=== PATIENT | male | born 1960 | race Caucasian/White ===

== ENCOUNTER 2019-04-06 16:27 | Emergency (ER) | payer SELFPAY ==
[~2019-04-06] VITALS: Ht 180.3 cm; Wt 69.0 kg
--- NOTE | 2019-04-06 16:46 | PHYS DOC ---
Adult General Chief Complaint Chief Complaint: COLD EXPOSURE HPI HPI Patient is a 58 year old male patient who presents to the ED today complaining of Pop bites to the right foot. Patient reports being outside for long hours today working. He also reports consuming some alcohol. Denies needing help for alcoholism. Review of Systems Review of Systems Constitutional: Denies fever or chills [] Eyes: Denies change in visual acuity, redness, or eye pain [] HENT: Denies nasal congestion or sore throat [] Respiratory: Denies cough or shortness of breath [] Cardiovascular: No additional information not addressed in HPI [] GI: Denies abdominal pain, nausea, vomiting, bloody stools or diarrhea [] : Denies dysuria or hematuria [] Musculoskeletal: Denies back pain or joint pain [] Integument: Pupils frostbite to the right foot Neurologic: Denies headache, focal weakness or sensory changes [] Pysch: Reports alcoholism All other systems were reviewed and found to be within normal limits, except as documented in this note. Physical Exam Physical Exam Constitutional: Old appearing patient that stated age, unkept, no acute dis tress, non-toxic appearance. [] HENT: Normocephalic, atraumatic, bilateral external ears normal, oropharynx moist, no oral exudates, nose normal. [] Eyes: PERRLA, EOMI, conjunctiva normal, no discharge. [] Neck: Normal range of motion, no tenderness, supple, no stridor. [] Cardiovascular:Heart rate regular rhythm, no murmur [] Lungs & Thorax: Bilateral breath sounds clear to auscultation [] Abdomen: Bowel sounds normal, soft, no tenderness, no masses, no pulsatile masses. [] Skin: right foot is cold and very dirty. Pop bites noted on the top of the right fourth toes and lateral foot. Neurovascular exam is intact to the right foot. Left foot with all toe amputations. Back: No tenderness, no CVA tenderness. [] Extremities: No tenderness, no cyanosis, no clubbing, ROM intact, no edema. [] Neurologic: Alert and oriented X 3, normal motor function, normal sensory function, no focal deficits noted. [] Psychologic: Flat affect, he has drunk EKG EKG [] Radiology/Procedures Radiology/Procedures [] Course & Med Decision Making Course & Med Decision Making Pertinent Labs and Imaging studies reviewed. (See chart for details) This is a 58-year-old male patient presented to the ED today with forced bites to the right foot. Patient has been out for long hours apparently working though he is also drunk. He is homeless and lives in a homeless long term. His feet were warmed in the ED and d/c back to a homeless long term. Tetanus is up-to-date. Encouraged patient to consider getting help for alcoholism Dragon Disclaimer Dragon Disclaimer This electronic medical record was generated, in whole or in part, using a voice recognition dictation system. Departure Departure Impression: Primary Impression: Frostbite of foot, right Additional Impressions: Homeless ETOHism Disposition: HOME, SELF-CARE Condition: STABLE Referrals: NO PCP (PCP) LAZARUS GARAY MD follow up with your doctor in 1-2 weeks Patient Instructions: Alcohol Problems, Frostbite, [id number] Additional Instructions: You were evaluated in the emergency room for frostbite's. We recommend you avoid being out in the cold for long hours. Try and ensure you are dressup warm if you have to be outside. Consider getting help for alcohol use. Apply Neosporin to the frostbite's Problem Qualifiers Primary Impression: Frostbite of foot, right Encounter type: initial encounter Qualified Codes: T33.821A - Superficial frostbite of right foot, initial encounter; X31.XXXA - Exposure to excessive natural cold, initial encounter MYRIAM DHALIWAL APRN Apr 06, 2019 16:46
[2019-04-06 17:01] VITALS: BP 149/93
== END 2019-04-06 17:05 | disposition home or self-care (01) ==
LOC: ER 16:27
DX: T33.821A Superficial frostbite of right foot, initial encounter (principal); F10.10 Alcohol abuse, uncomplicated; Z59.0 Homelessness; X31.XXXA Exposure to excessive natural cold, initial encounter; Y93.89 Activity, other specified; Y92.89 Other specified places as the place of occurrence of the external cause; Y99.8 Other external cause status
CPT/HCPCS: 99282

== ENCOUNTER 2019-05-15 18:50 | Emergency (ER) | payer SELFPAY ==
[~2019-05-15] VITALS: Ht 180.3 cm; Wt 68.6 kg
[2019-05-15] MEDS ORDERED: ALBUTEROL SULFATE 2.5 MG/3 ML NEBU. NEB ONE (19:15)
[2019-05-15] MEDS ORDERED: IPRATRPIUM/ALBUTEROL 0.5/2.5MG 3 ML NEBU. NEB ONE (19:15)
[2019-05-15] MEDS ORDERED: methylPREDNISolone SOD SUCC PF 125 MG/2 ML VIAL. IV ONE (20:00)
[2019-05-15 20:23] VITALS: BP 108/85
[2019-05-15] MEDS ORDERED: AZIT250T6 PO (20:30)
[2019-05-15] MEDS ORDERED: PRED50TA PO (20:30)
[2019-05-15] MEDS ORDERED: BENZ100C PO (20:30)
--- NOTE | 2019-05-15 20:30 | PHYS DOC ---
Past Medical History Past Medical History: No Pertinent History, CHF, Hypertension (TSERING LAWS APRN) Past Surgical History: No Surgical History (TSERING LAWS APRN) Smoking Status: Current Every Day Smoker Additional Information: 2/ Alcohol Use: None (TSERING LAWS APRN) Attending Signature I have participated in the care of this patient and I have reviewed and agree with all pertinent clinical information above including history, exam, and recommendations. (ALMA OLIVAREZ MD) Adult General Chief Complaint Chief Complaint: ASTHMA HPI HPI Patient is a 58 year old male who presents to the emergency department via POV with complaints of shortness of breath and asthma problems for the last 2 days. Patient states that he has had a productive cough with white sputum but denies having any fever, chest pain, palpitations, diaphoresis, nausea, vomiting, diarrhea, abdominal pain, ear pain, sore throat, body aches, or fatigue. Patient reports that he smokes 2 packs of cigarettes a day. He states he does have an albuterol inhaler at home but has not tried taking it for his shortness of breath. He currently denies any pain. (TSERING LAWS APRN) Review of Systems Review of Systems Complete ROS is negative unless otherwise noted in HPI. (TSERING LAWS APRN) Current Medications Current Medications Current Medications Medications (Trade) Dose Ordered Sig/August Start Time Stop Time Status Last Admin Dose Admin Albuterol Sulfate (Ventolin Neb Soln) 2.5 mg 1X ONCE 05/15/19 19:15 05/15/19 19:16 DC 05/15/19 20:20 2.5 MG Albuterol/ Ipratropium (Duoneb) 3 ml 1X ONCE 05/15/19 19:15 05/15/19 19:16 DC 05/15/19 20:19 3 ML Methylprednisolone Sodium Succinate (SOLU-Medrol 125MG VIAL) 125 mg 1X ONCE 05/15/19 20:00 05/15/19 20:01 DC 05/15/19 20:36 125 MG (ALMA OLIVAREZ MD) Allergies Allergies Allergies Coded Allergies Type Severity Reaction Last Updated Verified No Known Drug Allergies 04/06/19 No (ALMA OLIVAREZ MD) Physical Exam Physical Exam See Above Constitutional: Well developed, well nourished, no acute distress, non-toxic appearance. [] HENT: Normocephalic, atraumatic, bilateral external ears normal, oropharynx moist, no oral exudates, nose normal. [] Eyes: PERRLA, EOMI, conjunctiva normal, no discharge. [] Neck: Normal range of motion, no stridor. [] Cardiovascular:Heart rate regular rhythm, no murmur [] Lungs & Thorax: Bilateral breath sounds expiratory wheezes throughout all hickey, slightly diminished in bilateral bases, no retractions, regular rate, speaking full sentences Skin: Warm, dry, no erythema, no rash. [] Back: No tenderness Extremities: No cyanosis, ROM intact Neurologic: Alert and oriented X 3, no focal deficits noted. [] Psychologic: Affect normal, judgement normal, mood normal. [] (TSERING LAWS APRN) Current Patient Data Vital Signs Vital Signs Date Time Temp Pulse Resp B/P (MAP) Pulse Ox O2 Delivery O2 Flow Rate FiO2 05/15/19 20:24 95 Room Air 05/15/19 20:23 76 17 108/85 (93) 05/15/19 18:50 98.1 98.1 (ALMA OLIVAREZ MD) EKG EKG [] (TSERING LAWS APRN) Radiology/Procedures Radiology/Procedures PROCEDURE: CHEST AP ONLY Exam: Chest one view INDICATION: Short of air TECHNIQUE: Frontal view of the chest Comparisons: None FINDINGS: The cardiomediastinal silhouette and pulmonary vessels are within normal limits. The lung and pleural spaces are clear. IMPRESSION: No acute cardiopulmonary process.[] (TSERING LAWS APRN) Course & Med Decision Making Course & Med Decision Making Pertinent Labs and Imaging studies reviewed. (See chart for details) Patient presented to the emergency department with complaints of an asthma exacerbation. His chest x-ray was unremarkable, the patient was given a DuoNeb and albuterol breathing treatment in addition 225 mg of IV Solu-Medrol. He reported feeling better after these medications and his lungs were clear in all hickey. No respiratory distress. Vital signs are stable in the emergency department. Prescription written for Zithromax, Tessalon Perles, and prednisone to begin taking tomorrow. Patient encouraged to take his albuterol inhaler as needed for shortness of breath or wheezing. He was encouraged to return to the emergency room if symptoms worsen. [] (TSERING LAWS APRN) Roger Disclaimer Dragon Disclaimer This electronic medical record was generated, in whole or in part, using a voice recognition dictation system. (TSERING LAWS APRN) Departure Departure Impression: Primary Impression: Asthma exacerbation Disposition: 01 HOME, SELF-CARE Condition: STABLE Referrals: NO PCP (PCP) Patient Instructions: Asthma, Acute Bronchospasm Additional Instructions: Fill prescription(s) and use as directed. Recommend use of a Cool mist humidifier in room at bedtime. Use your inhaler as prescribed for wheezing or shortness of breath. Alternate Tylenol or ibuprofen as needed for pain/fever. Increase clear fluids. Avoid airway triggers such as smoke, fragrance, dust, and pollen. Follow-up with your primary care doctor in 1-2 days, return to the ER if symptoms worsen. Scripts Benzonatate (TESSALON PERLE) 100 Mg Capsule 1 CAP PO TID PRN for COUGH for 7 Days, #21 CAP 0 Refills Prov: TSERING LAWS APRN 05/15/19 Prednisone (PREDNISONE) 50 Mg Tablet 1 TAB PO DAILY for 5 Days, #5 TAB 0 Refills Prov: TSERING LAWS APRN 05/15/19 Azithromycin (AZITHROMYCIN TABLET) 250 Mg Tablet 1 PKG PO UD for 5 Days, #6 TAB 0 Refills 2 the first day followed by 1 for days 2-5 Prov: TSERING LAWS APRN 05/15/19 Problem Qualifiers Primary Impression: Asthma exacerbation Asthma severity: mild Asthma persistence: intermittent Qualified Codes: J45.21 - Mild intermittent asthma with (acute) exacerbation TSERING LAWS APRN May 15, 2019 20:30 ALMA OLIVAREZ MD May 16, 2019 02:22
--- NOTE | 2019-05-15 20:32 | RAD ---
Exam: Chest one view INDICATION: Short of air TECHNIQUE: Frontal view of the chest Comparisons: None FINDINGS: The cardiomediastinal silhouette and pulmonary vessels are within normal limits. The lung and pleural spaces are clear. IMPRESSION: No acute cardiopulmonary process. Electronically signed by: Myles Keith MD (05/15/2019 8:28 PM) [id number]
== END 2019-05-15 20:40 | disposition home or self-care (01) ==
LOC: ER 18:50
DX: J45.21 Mild intermittent asthma with (acute) exacerbation (principal); R06.02 Shortness of breath; R05 Cough; F17.210 Nicotine dependence, cigarettes, uncomplicated
CPT/HCPCS: 71045; 94640; 96374; 99285; J2930; J7613

== ENCOUNTER 2019-05-24 19:33 | Emergency (ER) | payer SELFPAY ==
[~2019-05-24] VITALS: Ht 180.3 cm; Wt 65.0 kg
[~2019-05-24 19:33] MED LIST: AZIT250T6 PO; BENZ100C PO; PRED50TA PO
[2019-05-24] MEDS ORDERED: IPRATRPIUM/ALBUTEROL 0.5/2.5MG 3 ML NEBU. NEB ONE (20:45)
[2019-05-24] MEDS ORDERED: ALBU2.5V8 IH (21:23)
--- NOTE | 2019-05-24 21:26 | PHYS DOC ---
Past Medical History Past Medical History: Asthma, CHF, Hypertension Past Surgical History: No Surgical History Smoking Status: Current Every Day Smoker Alcohol Use: None Adult General Chief Complaint Chief Complaint: DYSPNEA/RESPIRATOY DISTRESS [facility] HPI Patient is a 58 year old male who presents with shortness of breath. Patient states his been out of his inhaler and has been wheezing. Denies any other symptoms. Complete ROS were reviewed and found to be within normal limits, except as documented in the HPI Current Medications Current Medications Current Medications Medications (Trade) Dose Ordered Sig/August Start Time Stop Time Status Last Admin Dose Admin Albuterol/ Ipratropium (Duoneb) 3 ml 1X ONCE 05/24/19 20:45 05/24/19 20:47 DC Allergies Allergies Allergies Coded Allergies Type Severity Reaction Last Updated Verified No Known Drug Allergies 04/06/19 No Physical Exam Physical Exam Constitutional: Well developed, well nourished, no acute distress, non-toxic appearance. [] HENT: Normocephalic, atraumatic, bilateral external ears normal, oropharynx moist, no oral exudates, nose normal. [] Eyes: PERRLA, EOMI, conjunctiva normal, no discharge. [] Neck: Normal range of motion, no tenderness, supple, no stridor. [] Cardiovascular:Heart rate regular rhythm, no murmur [] Lungs & Thorax: Bilateral breath sounds have diffuse wheezing. Neurologic: Alert and oriented X 3, normal motor function, normal sensory function, no focal deficits noted. [] Psychologic: Affect normal, judgement normal, mood normal. [] Current Patient Data Vital Signs Vital Signs Date Time Temp Pulse Resp B/P (MAP) Pulse Ox O2 Delivery O2 Flow Rate FiO2 05/24/19 19:56 97.8 96 20 135/80 (98) 91 Room Air 97.8 EKG EKG [] Radiology/Procedures Radiology/Procedures [] Course & Med Decision Making Course & Med Decision Making Pertinent Labs and Imaging studies reviewed. (See chart for details) We will give patient breathing treatment and then discharge home. Dragon Disclaimer Dragon Disclaimer This electronic medical record was generated, in whole or in part, using a voice recognition dictation system. Departure Departure Impression: Primary Impression: Asthma exacerbation Disposition: HOME, SELF-CARE Condition: STABLE Referrals: NO PCP (PCP) Patient Instructions: Asthma, Adult Additional Instructions: Thank you for visiting [facility]. We appreciate you trusting us with your care. If any additional problems come up don't hesitate to return to visit us. Please follow up with your primary care provider so they can plan additional care if needed and know about the problem that you had. If symptoms worsen come back to the Emergency Department. Any concerning symptoms that start such as chest pain, shortness of air, weakness or numbness on one side of the body, running high fevers or any other concerning symptoms return to the ER. Scripts Albuterol Sulfate (PROAIR HFA INHALER) 8.5 Gm Hfa.aer.ad 2 PUFF IH PRN Q4-6HRS PRN for wheezing for 21 Days, #1 INHALER 0 Refills Prov: ONESIMO SHELTON APRN 05/24/19 ONESIMO SHELTON APRN May 24, 2019 21:26
[2019-05-24 22:25] VITALS: BP 117/68
== END 2019-05-24 22:27 | disposition home or self-care (01) ==
LOC: ER 19:33
DX: J45.901 Unspecified asthma with (acute) exacerbation (principal); I11.0 Hypertensive heart disease with heart failure; I50.9 Heart failure, unspecified; F17.200 Nicotine dependence, unspecified, uncomplicated
CPT/HCPCS: 94640; 99285

== ENCOUNTER 2020-03-13 18:27 | Emergency (ER) | payer SELFPAY ==
[~2020-03-13] VITALS: Ht 180.3 cm; Wt 65.0 kg
[~2020-03-13 18:27] MED LIST changes: +ALBU2.5V8 IH
[2020-03-13] MEDS ORDERED: ACETAMINOPHEN 500 MG TABLET PO ONE (20:45)
--- NOTE | 2020-03-13 21:46 | RAD ---
Three-view right knee dated 03/13/2020. No comparison is available Clinical data indication: Medial right knee pain. FINDINGS: 3 views right knee show normal bony alignment. No displaced fracture. No acute osseous or articular a bnormality. No apparent joint effusion or loose body. IMPRESSION: No acute findings. Electronically signed by: Delbert Maddox MD (03/13/2020 9:44 PM) [id number]
--- NOTE | 2020-03-13 22:25 | PHYS DOC ---
Past Medical History Past Medical History: Asthma, CHF, Hypertension Past Surgical History: Other Additional Past Surgical Histo: LEFT FOOT, HERNIA, Smoking Status: Current Every Day Smoker Alcohol Use: None General Adult EDM: Chief Complaint: KNEE INJURY HPI: HPI: Patient is a 59 year old [f__sex] who presents with [] Review of Systems: Review of Systems: Constitutional: Denies fever or chills. [] Eyes: Denies change in visual acuity. [] HENT: Denies nasal congestion or sore throat. [] Respiratory: Denies cough or shortness of breath. [] Cardiovascular: Denies chest pain or edema. [] GI: Denies abdominal pain, nausea, vomiting, bloody stools or diarrhea. [] : Denies dysuria. [] Musculoskeletal: Denies back pain or joint pain. [] Integument: Denies rash. [] Neurologic: Denies headache, focal weakness or sensory changes. [] Endocrine: Denies polyuria or polydipsia. [] Lymphatic: Denies swollen glands. [] Psychiatric: Denies depression or anxiety. [] Heart Score: Risk Factors: Risk Factors: DM, Current or recent (<one month) smoker, HTN, HLP, family history of CAD, obesity. Risk Scores: Score 0 - 3: 2.5% MACE over next 6 weeks - Discharge Home Score 4 - 6: 20.3% MACE over next 6 weeks - Admit for Clinical Observation Score 7 - 10: 72.7% MACE over next 6 weeks - Early Invasive Strategies Current Medications: Current Medications Medications (Trade) Dose Ordered Sig/August Start Time Stop Time Status Last Admin Dose Admin Acetaminophen (Tylenol) 1,000 mg 1X ONCE 03/13/20 20:45 03/13/20 20:46 DC 03/13/20 21:52 1,000 MG Allergies: Allergies: Allergies Coded Allergies Type Severity Reaction Last Updated Verified No Known Drug Allergies 04/06/19 No Physical Exam: PE: Constitutional: Well developed, well nourished, no acute distress, non-toxic appearance. HENT: Normocephalic, atraumatic, Eyes: EOMI, conjunctiva normal, no discharge. Neck: Normal range of motion, supple, Cardiovascular: S1/2 present, regular rhythm Lungs & Thorax: Speaking in full sentences, bilateral equal chest rise, no tachypnea or increased work of breathing Abdomen: soft, no tenderness, Skin: Warm, dry, no erythema, no rash. [] Back: No tenderness, no CVA tenderness. [] Extremities: No tenderness, no cyanosis, no edema Neurologic: Alert and oriented X 3, normal motor function, normal sensory function, no focal deficits noted. [] Psychologic: Affect normal, judgement normal, mood normal. [] Current Patient Data: Vital Signs: Vital Signs Date Time Temp Pulse Resp B/P (MAP) Pulse Ox O2 Delivery O2 Flow Rate FiO2 03/13/20 20:14 98.1 93 16 137/85 (102) 95 Room Air 98.1 EKG: EKG: [] Radiology/Procedures: Radiology/Procedures: IMAGING REPORT Signed PATIENT: RAS WILILS ACCOUNT: [id number] : 1960 LOCATION: ER AGE: 59 SEX: M EXAM STATUS: REG ER ORD. PHYSICIAN: CHARLIE GOODEN DO REASON: right medial knee pain PROCEDURE: KNEE RIGHT 3V Three-view right knee dated 03/13/2020. No comparison is available Clinical data indication: Medial right knee pain. FINDINGS: 3 views right knee show normal bony alignment. No displaced fracture. No acute osseous or articular abnormality. No apparent joint effusion or loose body. IMPRESSION: No acute findings. Electronically signed by: Delbert Maddox MD (03/13/2020 9:44 PM) [id number] DICTATED and SIGNED BY: DELBERT MADDOX MD DATE: 03/13/20 [id number] 0 Course & Med Decision Making: Course & Med Decision Making Pertinent Labs and Imaging studies reviewed. (See chart for details) Will discharge home with strict ED return precautions were given for repeat injury, severe pain or neurologic deficits. Encouraged urgent outpatient follow- up with PMD and Ortho if pain should persist, may benefit from further imaging. Life-threatening processes were considered but are low suspicion at this time, given history, physical exam and ED workup. Pt was educated on all prescription medications and adverse effects. All patient's questions were answered and pt was stable at time of discharge. Life/limb-threatening differential includes but is not limited to, avascular necrosis, septic arthritis, malignancy, fracture/ligamentous injury/overuse, decompression sickness, seronegative spondyloarthropathies, trauma including dislocation/fracture, Lyme disease, lupus, arthritis differentials, gout/pseudogout or decompression sickness. I spoken with the patient and her caregivers. I explained the patient's condition, diagnoses and treatment plan based on the information available to me at this time. I have answered the patient and her caregiver's questions and addressed any concerns. The patient and her caregivers have a good un derstanding of patient's diagnosis, condition and treatment plan as can be expected at this point. Vital signs have been stable. Patient's condition is stable and appropriate for discharge from the emergency department. Patient will pursue further outpatient evaluation with primary care physician or other designated or consulting physician as outlined in the discharge instructi ons. The patient and/or caregivers are agreeable to this plan of care and follow-up instructions have been explained in detail. The patient and/or caregivers have received these instructions in written form and have expressed an understanding of the discharge instructions. The patient and/or caregivers are aware that any significant change of condition or worsening of symptoms s hould prompt immediate return to this or the closest emergency department or [facility] Disclaimer: Roger Disclaimer: This electronic medical record was generated, in whole or in part, using a voice recognition dictation system. Departure Departure Impression: Primary Impression: Right knee pain Disposition: 01 DC HOME SELF CARE/HOMELESS Condition: STABLE Referrals: NO PCP (PCP) FOLLOW UP WITH FAMILY MEDICINE: Family Medicine Address: [address] [place] [address] Patient Instructions: Knee Pain, RICE - Routine Care for Injuries Additional Instructions: FOLLOW UP WITH ORTHOPEDICS: Orthopaedic Sports Medicine Orthopaedic Surgery [facility] Address: [address] [place] [address] EMERGENCY DEPARTMENT GENERAL DISCHARGE INSTRUCTIONS Thank you for coming to [facility] Emergency Department (ED) today and trusting us with you care. We trust that you had a positive experience in our Emergency Department. If you wish to speak to the department management, you may call the Director at [phone]. YOUR FOLLOW UP INSTRUCTIONS ARE FOLLOWS: 1. Do you have a private Doctor? If you do not have a private doctor, please ask for a resource list of physicians or clinics that may be able to assist you with follow up care. 2. The Emergency Physicain has interpreted your x-rays. The X-Ray specialist will also review them. If there is a change in the findings, you will be notified in 48 hours when at all possible. 3. A lab test or culture has been done, your results will be reviewed and you will be notified if you need a change in treatment. ADDITIONAL INSTRUCTIONS AND INFORMATION: 1. Your care today has been supervised by a physician who is specially trained in emergency care. Many problems require more than one evaluation for a complete diagnosis and treatment. We recommend that you schedule your follow up appointment as recommended to ensure complete treatment of you illness or injury. If you are unable to obtain follow up care and continue to have a problem, or if your condition worsens, we recommend that you return to the ED. 2. We are not able to safely determine your condition over the phone nor are we able to give sound medical advice over the phone. For these safety reasons, if you call for medical advice we will ask you to come to the ED for further evaluation. 3. If you have any questions regarding these discharge instructions please call the ED at [phone]. SAFETY INFORMATION: In the interest of safety, wellness, and injury prevention; we encourage you to wear your sealbelt, if you smoke; quite smoking, and we encourage family to use a protective helmet for bicycling and other sporting events that present an increased risk for head injury. IF YOUR SYMPTOMS WORSEN OR NEW SYMPTOMS DEVELOP, OR YOU HAVE CONCERNS ABOUT YOUR CONDITION; OR IF YOUR CONDITION WORSENS WHILE YOU ARE WAITING FOR YOUR FOLLOW UP APPOINTMENT; EITHER CONTACT YOUR PRIMARY CARE DOCTOR, THE PHYSICIAN WHOSE NAME AND NUMBER YOU WERE GIVEN, OR RETURN TO THE ED IMMEDIATELY. CHARLIE WHITLOCK DO Mar 13, 2020 22:25
[2020-03-13 22:45] VITALS: BP 132/87
== END 2020-03-13 22:59 | disposition home or self-care (01) ==
LOC: ER 18:27
DX: M25.561 Pain in right knee (principal); I11.0 Hypertensive heart disease with heart failure; I50.9 Heart failure, unspecified; J45.909 Unspecified asthma, uncomplicated; F17.200 Nicotine dependence, unspecified, uncomplicated
CPT/HCPCS: 73562; 99285

== ENCOUNTER 2020-05-11 19:19 | Emergency (ER) | payer SELFPAY ==
[~2020-05-11] VITALS: Ht 180.3 cm; Wt 73.0 kg
--- NOTE | 2020-05-11 19:26 | PHYS DOC ---
Past Medical History Past Medical History: Asthma, CHF, Hypertension Past Surgical History: Other Additional Past Surgical Histo: LEFT FOOT, HERNIA, Smoking Status: Current Every Day Smoker Alcohol Use: None General Adult HPI: HPI: 51-year-old male past medical history significant for CHF, asthma and hypertension, presents the ED brought in by EMS with complaints of " asthma," states it flared up 2 days ago and reports needing to come to the ed every week for treatments, has no refills for steroids or inhalers. Patient denies any history of DVT or PEs. No history of Covid. Reports he has a home health physical parents is otherwise. Denies any cocaine abuse, chest pain, hemoptysis or syncope. Review of Systems: Review of Systems: Constitutional: Denies fever or chills. [] Eyes: Denies change in visual acuity. [] HENT: Denies nasal congestion or sore throat. [] Respiratory: Denies cough or hemoptysis or increased work of breathing Cardiovascular: Denies chest pain or edema. [] GI: Denies abdominal pain, nausea, vomiting, bloody stools or diarrhea. [] : Denies dysuria. [] Musculoskeletal: Denies back pain or joint pain. [] Integument: Denies rash. [] Neurologic: Denies headache, focal weakness or sensory changes. [] Endocrine: Denies polyuria or polydipsia. [] Lymphatic: Denies swollen glands. [] Psychiatric: Denies depression or anxiety. [] Heart Score: C/O Chest Pain: No Risk Factors: Risk Factors: DM, Current or recent (<one month) smoker, HTN, HLP, family history of CAD, obesity. Risk Scores: Score 0 - 3: 2.5% MACE over next 6 weeks - Discharge Home Score 4 - 6: 20.3% MACE over next 6 weeks - Admit for Clinical Observation Score 7 - 10: 72.7% MACE over next 6 weeks - Early Invasive Strategies Allergies: Allergies: Allergies Coded Allergies Type Severity Reaction Last Updated Verified No Known Drug Allergies 04/06/19 No Physical Exam: PE: Constitutional: Well developed, well nourished, no acute distress, unkept/disheveled appearance, looks older than 58, lying flat/comfortable on ED stretcher HENT: Normocephalic, atraumatic, Eyes: EOMI, conjunctiva normal, no discharge. Neck: Normal range of motion, supple, Cardiovascular: S1/2 present, regular rhythm Lungs & Thorax: Speaking in full sentences, bilateral equal chest rise, no tachypnea or increased work of breathing, breath sounds in all 4 lung hickey, mild expiratory wheezing, Skin: Warm, dry, no erythema, no rash. [] Extremities: No tenderness, no cyanosis, no lower extremity edema Neurologic: Alert and oriented X 3, normal motor function, normal sensory function, no focal deficits noted. [] Psychologic: Affect normal, judgement normal, mood normal. [] EKG: EKG: Sinus rhythm at 70 bpm, no axis deviation, normal intervals, T wave inversion aVL, no ST elevations or ST depressions Radiology/Procedures: Radiology/Procedures: IMAGING REPORT Signed PATIENT: RAS WILLIS ACCOUNT: [id number] : 1960 LOCATION: ER AGE: 59 SEX: M EXAM STATUS: REG ER ORD. PHYSICIAN: CHARLIE GOODEN DO REASON: soa PROCEDURE: PORTABLE CHEST 1V Exam: Chest one view INDICATION: Short of air TECHNIQUE: Frontal view of the chest Comparisons: 05/15/2019 FINDINGS: The cardiomediastinal silhouette and pulmonary vessels are within normal limits. The lung and pleural spaces are clear. IMPRESSION: No acute cardiopulmonary process. Electronically signed by: Myles Salcido MD (05/11/2020 7:59 PM) [facility] DICTATED and SIGNED BY: MYLES SALCIDO MD DATE: 05/11/20 [id number] 0 Course & Med Decision Making: Course & Med Decision Making Pertinent Labs and Imaging studies reviewed. (See chart for details) Concern for mild asthma exacerbation in the setting of medication noncompliance. Patient comfortable, speaking in full sentences and requiring no supplemental oxygen. Is no physical signs of DVT. Has no increased work of breathing. Lung sounds improved after breathing treatments and prednisone. Will DC home with steroids for 4 days, albuterol and Flovent inhaler. Will discharge home with strict ED return precautions were given for increased work of breathing, hemoptysis, chest or upper back pain, nausea, vomiting, syncope or neurologic deficits. Encouraged urgent outpatient follow-up with PMD and pulmonology. Life-threatening processes were considered but are low suspicion at this time, given history, physical exam and ED workup. Pt was educated on all prescription medications and adverse effects. All patient's questions were answered and pt was stable at time of discharge. Life/limb-threatening differential includes but is not limited to, ACS, dysrhythmia, pneumothorax or hemothorax, pulmonary embolus, pneumonia, bronchoconstriction, pulmonary edema, angioedema, epiglottitis, tracheitis, César's angina, RPA/EVP OPERATIONS, anaphylaxis, angioedema, cardiac tamponade or murmurs, pericarditis, myocarditis, poisoning or toxicity, sepsis or autoimmune/karolina rologic disease. I spoken with the patient and her caregivers. I explained the patient's condition, diagnoses and treatment plan based on the information available to me at this time. I have answered the patient and her caregiver's questions and addressed any concerns. The patient and her caregivers have a good understanding of patient's diagnosis, condition and treatment plan as can be expected at this point. Vital signs have been stable. Patient's condition is stable and appropriate for discharge from the emergency department. Patient will pursue further outpatient evaluation with primary care physician or other designated or consulting physician as outlined in the discharge instructions. The patient and/or caregivers are agreeable to this plan of care and follow-up instructions have been explained in detail. The patient and/or caregivers have received these instructions in written form and have expressed an understanding of the discharge instructions. The patient and/or caregivers are aware that any significant change of condition or worsening of symptoms should prompt immediate return to this or the closest emergency department or call to 911. Roger Disclaimer: Roger Disclaimer: This electronic medical record was generated, in whole or in part, using a voice recognition dictation system. Departure Departure Impression: Primary Impression: Asthma exacerbation Disposition: 01 DC HOME SELF CARE/HOMELESS Condition: STABLE Referrals: NO PCP (PCP) FOLLOW UP WITH FAMILY MEDICINE: Family Medicine Address: [address] [place] [address] Patient Instructions: Asthma Prevention-Brief, Asthma, Adult Additional Instructions: FOLLOW UP WITH: [facility] Address: [address] [place] [address] EMERGENCY DEPARTMENT GENERAL DISCHARGE INSTRUCTIONS Thank you for coming to [facility] Emergency Department (ED) today and trusting us with you care. We trust that you had a positive experience in our Emergency Department. If you wish to speak to the department management, you may call the Director at [phone]. YOUR FOLLOW UP INSTRUCTIONS ARE FOLLOWS: 1. Do you have a private Doctor? If you do not have a private doctor, please ask for a resource list of physicians or clinics that may be able to assist you with follow up care. 2. The Emergency Physicain has interpreted your x-rays. The X-Ray specialist will also review them. If there is a change in the findings, you will be notified in 48 hours when at all possible. 3. A lab test or culture has been done, your results will be reviewed and you will be notified if you need a change in treatment. ADDITIONAL INSTRUCTIONS AND INFORMATION: 1. Your care today has been supervised by a physician who is specially trained in emergency care. Many problems require more than one evaluation for a complete diagnosis and treatment. We recommend that you schedule your follow up appointment as recommended to ensure complete treatment of you illness or injury. If you are unable to obtain follow up care and continue to have a problem, or if your condition worsens, we recommend that you return to the ED. 2. We are not able to safely determine your condition over the phone nor are we able to give sound medical advice over the phone. For these safety reasons, if you call for medical advice we will ask you to come to the ED for further evaluation. 3. If you have any questions regarding these discharge instructions please call the ED at [phone]. SAFETY INFORMATION: In the interest of safety, wellness, and injury prevention; we encourage you to wear your sealbelt, if you smoke; quite smoking, and we encourage family to use a protective helmet for bicycling and other sporting events that present an increased risk for head injury. IF YOUR SYMPTOMS WORSEN OR NEW SYMPTOMS DEVELOP, OR YOU HAVE CONCERNS ABOUT YOUR CONDITION; OR IF YOUR CONDITION WORSENS WHILE YOU ARE WAITING FOR YOUR FOLLOW UP APPOINTMENT; EITHER CONTACT YOUR PRIMARY CARE DOCTOR, THE PHYSICIAN WHOSE NAME AND NUMBER YOU WERE GIVEN, OR RETURN TO THE ED IMMEDIATELY. Scripts Fluticasone Propionate (FLOVENT 44MCG HFA) 10.6 Gm Aer.w.adap 2 PUFF IH BID for 30 Days, #1 INHALER 0 Refills Prov: CHARLIE GOODEN DO 05/11/20 Albuterol Sulfate (VENTOLIN HFA INHALER) 18 Gm Hfa.aer.ad 2 PUFF INH QID for FOR ASTHMA, #1 INHALER 0 Refills Prov: CHARLIE GOODEN DO 05/11/20 Prednisone (PREDNISONE) 20 Mg Tablet 2 TAB PO DAILY for 4 Days, #8 TAB Prov: CHARLIE GOODEN DO 05/11/20 CHARLIE GOODEN DO May 11, 2020 19:26
--- NOTE | 2020-05-11 19:52 | EKG ---
[facility] [address] [place] [address] Test Date: 2020-05-11 Test Time: 19:32:08 Pat Name: RAS WILLIS Department: Room: Gender: M Director Of Safety And Security: : 1960 Requested By: CHARLIE GOODEN Order Number: [id number] Reading MD: Measurements Intervals [place] Rate: 79 P: 64 [place]: 166 QRS: 80 QRSD: 82 T: 66 QT: 356 QTc: 414 Interpretive Statements SINUS RHYTHM INCOMPLETE RIGHT BUNDLE BRANCH BLOCK OTHERWISE NORMAL ECG RI6.02 No previous ECG available for comparison
[2020-05-11] MEDS ORDERED: IPRATRPIUM/ALBUTEROL 0.5/2.5MG 3 ML NEBU. NEB ONE (20:00)
[2020-05-11] MEDS ORDERED: DEXAMETHASONE 4 MG TABLET PO SCH (20:00)
--- NOTE | 2020-05-11 20:02 | RAD ---
Exam: Chest one view INDICATION: Short of air TECHNIQUE: Frontal view of the chest Comparisons: 05/15/2019 FINDINGS: The cardiomediastinal silhouette and pulmonary vessels are within normal limits. The lung and pleural spaces are clear. IMPRESSION: No acute cardiopulmonary process. Electronically signed by: Myles Keith MD (05/11/2020 7:59 PM) [facility]
[2020-05-11 20:54] VITALS: BP 122/75
[2020-05-11] MEDS ORDERED: PRED20TA PO (21:59)
[2020-05-11] MEDS ORDERED: VENTOLIN HFA18 GM INH (22:25)
[2020-05-11] MEDS ORDERED: FLUT10.6 IH (22:25)
== END 2020-05-11 22:54 | disposition home or self-care (01) ==
LOC: ER 19:19
DX: J45.901 Unspecified asthma with (acute) exacerbation (principal); I11.0 Hypertensive heart disease with heart failure; I50.9 Heart failure, unspecified; F17.200 Nicotine dependence, unspecified, uncomplicated
CPT/HCPCS: 71045; 93005; 94640; 99285-25

== ENCOUNTER 2020-09-27 12:00 | Emergency (ER) | payer SELFPAY ==
[~2020-09-27] VITALS: Ht 180.3 cm; Wt 56.8 kg
[~2020-09-27 12:00] MED LIST changes: +ACET325T9 PO; +DOXY100T PO; +FLUT10.6 IH; +PRED20TA PO; +VENTOLIN HFA18 GM INH
[2020-09-27] MEDS ORDERED: methylPREDNISolone SOD SUCC PF 125 MG/2 ML VIAL. IV SCH (12:30)
[2020-09-27] MEDS ORDERED: ALBUTEROL SULFATE 2.5 MG/3 ML NEBU. NEB ONE (12:30)
--- NOTE | 2020-09-27 12:52 | RAD ---
EXAM: Chest, single view. HISTORY: Shortness of breath. COMPARISON: 08/24/2020 FINDINGS: A frontal view of the chest is obtained. There is lingular atelectasis or interstitial infi ltrate. There is no pleural effusion or pneumothorax. The heart is normal in size. There is suspected emphysema. IMPRESSION: Lingular atelectasis or interstitial infiltrate. Electronically signed by: Kimmy Marshall MD (09/27/2020 12:50 PM) [id number]
--- NOTE | 2020-09-27 12:57 | PHYS DOC ---
Past Medical History Past Medical History: Asthma, CHF, COPD, Hypertension Past Surgical History: No Surgical History Additional Past Surgical Histo: TOE AMPUTATION Smoking Status: Current Every Day Smoker Alcohol Use: None General Adult EDM: Chief Complaint: MEDICATION REFILL HPI: HPI: Patient is a 59 year old male who presents with approximately 2 days of increased shortness of breath, cough, chest tightness. He states he does have an inhaler and is just not working. He states he has been using inhaler he does not have a nebulizer though. He states that he has had his Covid shots and is fully vaccinated. He denies any chest pain, syncope, dizziness, headache, fever, nausea, vomiting, diarrhea, abdominal pain, back pain, body aches. He does have a history of COPD, smoking, alcoholism, homelessness, frostbite, toe amputation, CHF, hypertension. Review of Systems: Review of Systems: Constitutional: Denies fever or chills. [] Eyes: Denies change in visual acuity. [] HENT: Denies nasal congestion or sore throat. [] Respiratory: + cough or +shortness of breath. [] Cardiovascular: + chest tightness or denies edema. [] GI: Denies abdominal pain, nausea, vomiting, bloody stools or diarrhea. [] : Denies dysuria. [] Musculoskeletal: Denies back pain or joint pain. [] Integument: Denies rash. [] Neurologic: Denies headache, focal weakness or sensory changes. [] Endocrine: Denies polyuria or polydipsia. [] Lymphatic: Denies swollen glands. [] Psychiatric: Denies depression or anxiety. [] Heart Score: C/O Chest Pain: No HEART Score for Chest Pain: HEART Score for Chest Pain Response (Comments) Value History Slighlty/Non-Suspicious 0 ECG Nonspecific Repolarizatio 1 Age >45 - < 65 1 Risk Factors 1 or 2 Risk Factors 1 Troponin < Normal Limit 0 Total 3 Risk Factors: Risk Factors: DM, Current or recent (<one month) smoker, HTN, HLP, family history of CAD, obesity. Risk Scores: Score 0 - 3: 2.5% MACE over next 6 weeks - Discharge Home Score 4 - 6: 20.3% MACE over next 6 weeks - Admit for Clinical Observation Score 7 - 10: 72.7% MACE over next 6 weeks - Early Invasive Strategies Current Medications: Current Medications Medications (Trade) Dose Ordered Sig/August Start Time Stop Time Status Last Admin Dose Admin Albuterol Sulfate (Ventolin Neb Soln) 2.5 mg 1X ONCE 09/27/20 12:30 09/27/20 12:31 DC Methylprednisolone Sodium Succinate (SOLU-Medrol 125MG VIAL) 80 mg 1X 09/27/20 12:30 Allergies: Allergies: Allergies Coded Allergies Type Severity Reaction Last Updated Verified No Known Drug Allergies 04/06/19 No Physical Exam: PE: Constitutional: Well developed, well nourished, no acute distress, non-toxic appearance. [] HENT: Normocephalic, atraumatic, bilateral external ears normal, oropharynx moist, no oral exudates, nose normal. [] Eyes: PERRLA, EOMI, conjunctiva normal, no discharge. [] Neck: Normal range of motion, no tenderness, supple, no stridor. [] Cardiovascular:Heart rate regular rhythm, no murmur [] Lungs & Thorax: Bilateral breath sounds inspiratory expiratory coarse throughout to auscultation [] Abdomen: Bowel sounds normal, soft, no tenderness, no masses, no pulsatile masses. [] Skin: Warm, dry, no erythema, no rash. [] Back: No tenderness, no CVA tenderness. [] Extremities: No tenderness, no cyanosis, no clubbing, ROM intact, no edema. [] Neurologic: Alert and oriented X 3, normal motor function, normal sensory function, no focal deficits noted. [] Psychologic: Affect normal, judgement normal, mood normal. [] Current Patient Data: Vital Signs: Vital Signs Date Time Temp Pulse Resp B/P (MAP) Pulse Ox O2 Delivery O2 Flow Rate FiO2 09/27/20 12:04 98.1 89 22 102/63 94 Room Air 98.1 EKG: EK and read by Dr. La as a sinus rhythm with a incomplete right bundle branch block with peaked T waves and no STEMI. Radiology/Procedures: Radiology/Procedures: [] Impression: [facility] [address] [place], [place] [id number] IMAGING REPORT Signed PATIENT: RAS WILLIS ACCOUNT: [id number] : 1960 LOCATION: ER AGE: 59 SEX: M EXAM STATUS: REG ER ORD. PHYSICIAN: TIFFANY GARCIA APRN REASON: SOA INCREASEING, INHALER NOT WORKING PROCEDURE: PORTABLE CHEST 1V EXAM: Chest, single view. HISTORY: Shortness of breath. COMPARISON: 08/24/2020 FINDINGS: A frontal view of the chest is obtained. There is lingular atelectasis or interstitial infiltrate. There is no pleural effusion or pneumothorax. The heart is normal in size. There is suspected emphysema. IMPRESSION: Lingular atelectasis or interstitial infiltrate. Electronically signed by: Kimmy Santillan MD (09/27/2020 12:50 PM) [id number] DICTATED and SIGNED BY: KIMMY SANTILLAN MD DATE: 09/27/20 [id number] 0 Course & Med Decision Making: Course & Med Decision Making Pertinent Labs and Imaging studies reviewed. (See chart for details) COVID-19 CRITERIA: The patient was evaluated during the global COVID-19 pandemic, and that diagnosis was suspected/considered upon their initial presentation. Their evaluation, treatment and testing was consistent with current guidelines for patients who present with complaints or symptoms that may be related to COVID-19. See HPI. Alert and oriented x4. Ambulatory with a steady gait. Speaks in full clear sentences. Was brought in by EMS today. He is 92 to 94% on room air. No accessory muscle use. No respiratory distress. However patient does have inspiratory expiratory coarse sounds throughout all lung lobes. No extremity edema. Skin is pink warm and dry. Cap refill less than 2 seconds. Patient is deciding to 85%. He is 90% on room air. Patient is refusing antibiotic, steroids, Covid test, admission, ABG. I asked the patient what I can do more for him if he would not let me help him. He states that he understands he has pneumonia and he understands that he could go home and because of his low oxygen saturation but he states he is fine with that and he wants to leave. He states " if I , I ". He denies suicidal ideation. He states he wants to go home. Patient states he understands that there is a real risk of or disability when leaving here today. [] Dragon Disclaimer: Dragon Disclaimer: This electronic medical record was generated, in whole or in part, using a voice recognition dictation system. COVID-19 Patient Risks: Age 65 or older: No Sign of co-morbidity: Yes Exp to person + for COVID: No Exp to PUI: No Travel from affected area: No Lower respiratory symptoms: Yes Fever: No Other: No PPE Use: Full PPE with N95 mask or PAPR: Yes Departure Departure Impression: Primary Impression: COPD exacerbation Additional Impressions: Hypoxia Pneumonia Qualified Codes: J18.9 - Pneumonia, unspecified organism Left against medical advice Person under investigation for COVID-19 Disposition: LEFT AGAINST MEDICAL ADVICE Condition: GOOD Referrals: NO PCP (PCP) Patient Instructions: Chronic Obstructive Pulmonary Disease Exacerbation, Discharge Against Medical Advice, Pneumonia, Adult Additional Instructions: Follow-up with primary care provider soon as possible. Take medication as prescribed and with food. If you begin having severe shortness of breath and chest pain you return emergency room. Scripts Albuterol Sulfate (PROAIR HFA INHALER) 8.5 Gm Hfa.aer.ad 1 PUFF INH PRN Q6HRS PRN for SHORTNESS OF BREATH, #1 EACH 0 Refills Prov: TIFFANY GARCIA APRN 09/27/20 Methylprednisolone (MEDROL) 4 Mg Tab.ds.pk 1 PKG PO UD, #1 PKG Prov: TIFFANY GARCIA APRN 09/27/20 Doxycycline Hyclate (DOXYCYCLINE HYCLATE) 100 Mg Capsule 1 CAP PO BID, #14 CAP Prov: TIFFANY GARCIA APRN 09/27/20 TIFFANY GARCIA APRN Sep 27, 2020 12:57
[2020-09-27] MEDS ORDERED: DOXYCYCLINE HYCLATE 100 MG in IV DEXTROSE 5% 100ML 100 ML IV ONE (13:00)
[2020-09-27 13:01] LABS: BASO # 0.1 x10^3/uL (0.0-0.2); BASO % 1 % (0-3); EOS # 0.4 x10^3/uL (0.0-0.7); EOS % 6 % (0-3); HEMATOCRIT 37.4 % (39.0-53.0); HEMOGLOBIN 12.5 g/dL (13.0-17.5); LYMPH # 2.5 x10^3/uL (1.0-4.8); LYMPH % 33 % (24-48); MEAN CORPUSCULAR HEMOGLOBIN 34 pg (25-35); MEAN CORPUSCULAR HGB CONC 34 g/dL (31-37); MEAN CORPUSCULAR VOLUME 100 fL (79-100); MONO # 0.8 x10^3/uL (0.0-1.1); MONO % 11 % (0-9); NEUT # 3.8 x10^3/uL (1.8-7.7); NEUT % 50 % (31-73); PLATELET COUNT 248 x10^3/uL (140-400); RED BLOOD COUNT 3.75 x10^6/uL (4.30-5.70); RED CELL DISTRIBUTION WIDTH 13.7 % (11.5-14.5); WHITE BLOOD COUNT 7.6 x10^3/uL (4.0-11.0)
[2020-09-27 13:16] LABS: CALCIUM 9.6 mg/dL (8.5-10.1); CREATININE 0.8 mg/dL (0.7-1.3); GFR 99.3; POTASSIUM 4.8 mmol/L (3.5-5.1)
[2020-09-27 13:21] LABS: ALBUMIN 3.3 g/dL (3.4-5.0); ALBUMIN/GLOBULIN RATIO 1.2 (1.0-1.7); TOTAL BILIRUBIN 0.1 mg/dL (0.2-1.0); TOTAL PROTEIN 6.1 g/dL (6.4-8.2)
[2020-09-27] MEDS ORDERED: ALBU2.5V8 INH (13:44)
[2020-09-27] MEDS ORDERED: METH4TAB2 PO (13:44)
[2020-09-27] MEDS ORDERED: DOXY100C3 PO (13:44)
[2020-09-27 13:57] VITALS: BP 114/73
--- NOTE | 2020-09-27 15:40 | EKG ---
[facility] [address] [place] [address] Test Date: 2020-09-27 Test Time: 12:04:06 Pat Name: RAS WILLIS Department: Room: Gender: M Rivet Flunky: : 1960 Requested By: TIFFANY GARCIA Order Number: [id number] Reading MD: Measurements Intervals [place] Rate: 89 P: 52 [place]: 156 QRS: 83 QRSD: 82 T: 69 QT: 326 QTc: 398 Interpretive Statements SINUS RHYTHM INCOMPLETE RIGHT BUNDLE BRANCH BLOCK NON SPECIFIC ST-T ABNORMALITY (ELEVATION) OTHERWISE NORMAL ECG RI6.02 No previous ECG available for comparison
== END 2020-09-27 13:57 | disposition left against medical advice (07) ==
LOC: ER 12:00
DX: J18.9 Pneumonia, unspecified organism (principal); J44.1 Chronic obstructive pulmonary disease with (acute) exacerbation; R09.02 Hypoxemia; I45.10 Unspecified right bundle-branch block; J44.9 Chronic obstructive pulmonary disease, unspecified; I11.0 Hypertensive heart disease with heart failure; I50.9 Heart failure, unspecified; F17.200 Nicotine dependence, unspecified, uncomplicated
CPT/HCPCS: 36415; 71045; 80053; 83605; 84484; 85025; 87040; 87205; 93005; 94640; 99285; J7613; 87077

== ENCOUNTER 2021-07-04 18:57 | Emergency (ER) | payer SELFPAY ==
[~2021-07-04] VITALS: Ht 177.8 cm; Wt 60.0 kg
[~2021-07-04 18:57] MED LIST changes: +ALBU2.5V8 INH; +DOXY100C3 PO; +METH4TAB2 PO
[2021-07-04] MEDS ORDERED: IV NORMAL SALINE 1000ML BAG 1,000 ML IV ONE (19:15)
[2021-07-04] MEDS ORDERED: IPRATRPIUM/ALBUTEROL 0.5/2.5MG 3 ML NEBU. NEB ONE (19:15)
--- NOTE | 2021-07-04 19:19 | ED.ADGEN ---
Past Medical History Past Medical History: Asthma, CHF, COPD, Hypertension Past Surgical History: No Surgical History Additional Past Surgical Histo: TOE AMPUTATION Smoking Status: Current Every Day Smoker Alcohol Use: None General Adult EDM: Chief Complaint: MULTIPLE COMPLAINTS HPI: HPI: Patient is a 60 year old male coming in from home via EMS for shortness of breath and wheezing. Patient has a history of asthma and COPD. On EMS arrival he was satting 92% on room air, was given a DuoNeb in route and improved to 97 to 98%. Patient states he does not have any medications at home. Denies other medical conditions. Patient is also concerned because he had a tick bite on his right lower leg about a week ago. Patient says he has a nonproductive cough he denies any fever chills, vomiting or diarrhea. Patient continues to smoke daily. Review of Systems: Review of Systems: All other systems within normal limits except for as noted in the HPI Current Medications: Current Medications Medications (Trade) Dose Ordered Sig/August Start Time Stop Time Status Last Admin Dose Admin Albuterol/ Ipratropium (Duoneb) 3 ml 1X ONCE 07/04/21 19:15 07/04/21 19:16 DC 07/04/21 19:43 3 ML Levofloxacin (Levaquin) 750 mg 1X ONCE 07/04/21 20:45 07/04/21 20:53 DC Prednisone (Prednisone) 60 mg 1X ONCE 07/04/21 20:45 07/04/21 20:53 DC Sodium Chloride 1,000 ml @ 1,000 mls/hr 1X ONCE 07/04/21 19:15 07/04/21 20:14 DC 07/04/21 19:41 1,000 MLS/HR Allergies: Allergies: Allergies Coded Allergies Type Severity Reaction Last Updated Verified No Known Drug Allergies 07/04/21 No Physical Exam: PE: Constitutional: Well developed, well nourished, no acute distress, non-toxic appearance. [] HENT: Normocephalic, atraumatic, bilateral external ears normal, nose normal. [] Eyes: PERRLA, conjunctiva normal, no discharge. [] Neck: No rigidity, supple, no stridor. [] Cardiovascular: Regular rate and rhythm, brisk cap refill [] Lungs & Thorax: Non labored symmetric respirations, no tachypnea or respiratory distress. Bilateral diminished breath [] Abdomen: Soft, nondistended. Skin: Warm, dry, no erythema, no rash. Small punctate wound on medial right lower extremity, no surrounding erythema or rash [] Back: Unremarkable Extremities: No deformities, range of motion grossly intact, no lower extremity edema. Tenderness over proximal right fibula. [] Neurologic: Alert and oriented X 3, no focal deficits noted. [] Psychologic: Affect normal, judgement normal, mood normal. [] Current Patient Data: Labs: Laboratory Tests Test 07/04/21 19:36 07/04/21 19:48 White Blood Count 5.7 x10^3/uL (4.0-11.0) Red Blood Count 4.01 x10^6/uL (4.30-5.70) L Hemoglobin 13.4 g/dL (13.0-17.5) Hematocrit 39.5 % (39.0-53.0) Mean Corpuscular Volume 99 fL (79-100) Mean Corpuscular Hemoglobin 34 pg (25-35) Mean Corpuscular Hemoglobin Concent 34 g/dL (31-37) Red Cell Distribution Width 13.6 % (11.5-14.5) Platelet Count 241 x10^3/uL (140-400) Neutrophils (%) (Auto) 38 % (31-73) Lymphocytes (%) (Auto) 41 % (24-48) Monocytes (%) (Auto) 13 % (0-9) H Eosinophils (%) (Auto) 7 % (0-3) H Basophils (%) (Auto) 1 % (0-3) Neutrophils # (Auto) 2.1 x10^3/uL (1.8-7.7) Lymphocytes # (Auto) 2.3 x10^3/uL (1.0-4.8) Monocytes # (Auto) 0.7 x10^3/uL (0.0-1.1) Eosinophils # (Auto) 0.4 x10^3/uL (0.0-0.7) Basophils # (Auto) 0.1 x10^3/uL (0.0-0.2) Sodium Level 137 mmol/L (136-145) Potassium Level 4.2 mmol/L (3.5-5.1) Chloride Level 99 mmol/L (98-107) Carbon Dioxide Level 28 mmol/L (21-32) Anion Gap 10 (6-14) Blood Urea Nitrogen 12 mg/dL (8-26) Creatinine 0.7 mg/dL (0.7-1.3) Estimated GFR (Cockcroft-Gault) 115.4 BUN/Creatinine Ratio 17 (6-20) Glucose Level 93 mg/dL (70-99) Calcium Level 9.4 mg/dL (8.5-10.1) Magnesium Level 1.9 mg/dL (1.8-2.4) Total Bilirubin 0.1 mg/dL (0.2-1.0) L Aspartate Amino Transferase (AST) 33 U/L (15-37) Alanine Aminotransferase (ALT) 35 U/L (16-63) Alkaline Phosphatase 83 U/L (46-116) Troponin I High Sensitivity 8 ng/L (4-75) Total Protein 6.6 g/dL (6.4-8.2) Albumin 3.5 g/dL (3.4-5.0) Albumin/Globulin Ratio 1.1 (1.0-1.7) POC Venous pH 7.31 (7.32-7.42) L POC Venous pCO2 59 mmHg (41-51) H POC Venous pO2 70 mmHg (20-40) H Venous Blood HCO3 29 mmol/L (24-28) H POC Venous O2 Saturation (Magdaleno) 92 % POC FiO2 21.0 Laboratory Tests 07/04/21 19:36 Laboratory Tests 07/04/21 19:36 Vital Signs: Vital Signs Date Time Temp Pulse Resp B/P (MAP) Pulse Ox O2 Delivery O2 Flow Rate FiO2 07/04/21 19:47 70 18 112/62 (79) 91 BREATHING TX 07/04/21 18:57 97.5 97.5 EKG: EKG: [] Heart Score: C/O Chest Pain: No Risk Factors: Risk Factors: DM, Current or recent (<one month) smoker, HTN, HLP, family history of CAD, obesity. Risk Scores: Score 0 - 3: 2.5% MACE over next 6 weeks - Discharge Home Score 4 - 6: 20.3% MACE over next 6 weeks - Admit for Clinical Observation Score 7 - 10: 72.7% MACE over next 6 weeks - Early Invasive Strategies Radiology/Procedures: Radiology/Procedures: [facility] [address] [place] [address] IMAGING REPORT Signed PATIENT: RAS WILLIS ACCOUNT: [id number] : 1960 LOCATION: ER AGE: 60 SEX: M EXAM STATUS: REG ER ORD. PHYSICIAN: CHINTAN SALAZAR MD REASON: tenderness on prox fib PROCEDURE: TIBIA FIBULA RIGHT EXAMINATION: XR RT TIBIA+FIBULA CLINICAL HISTORY: Pain proximal fibula. TECHNIQUE: XR RT TIBIA+FIBULA COMPARISON: None FINDINGS/ IMPRESSION: Deformity of the proximal fibula on AP view but poorly visualized on lateral view due to bony overlap, suspicious for a remote healed fracture, correlate clinically. Poorly visualized acute fracture considered less likely but not entirely excluded, especially if there is history of acute trauma. There is otherwise no evidence of acute or chronic fracture. Joints at the knee and ankle incompletely evaluated. No focal soft tissue swelling. Vascular calcifications. Electronically signed by: Faustino Eduardo DO (07/04/2021 8:29 PM) [facility] DICTATED and SIGNED BY: FAUSTINO EDUARDO DO DATE: 07/04/212025 [] [address] [address] IMAGING REPORT Signed PATIENT: RAS WILLIS ACCOUNT: [id number] : 1960 LOCATION: ER AGE: 60 SEX: M EXAM STATUS: REG ER ORD. PHYSICIAN: CHINTAN SALAZAR MD REASON: copd PROCEDURE: PORTABLE CHEST 1V EXAMINATION: XR CHEST 1V CLINICAL HISTORY: COPD. EXAM DATE/TIME: 07/04/2021 7:28 PM COMPARISON: 09/27/2020 FINDINGS: Lines, Tubes, and Devices: None. Cardiomediastinal Silhouette: Normal heart size. Aortic atherosclerotic calcification. Lungs and Pleura: Mild patchy opacities in the right mid to lower and left lower lung zones. Nonspecific interstitial prominence, similar to prior study and likely chronic. No evidence of pleural effusion or pneumothorax. Bones and Soft Tissues: Degenerative changes in the thoracic spine. IMPRESSION: Nonspecific mild patchy opacities in the right mid and bilateral lower lung zones. Electronically signed by: Faustino Eduardo DO (07/04/2021 8:25 PM) [facility] DICTATED and SIGNED BY: FAUSTINO EDUARDO DO DATE: 07/04/212023 Course & Med Decision Making: Course & Med Decision Making Pertinent Labs and Imaging studies reviewed. (See chart for details) [] Dragon Disclaimer: Dragon Disclaimer: This electronic medical record was generated, in whole or in part, using a voice recognition dictation system. Departure Departure Impression: Primary Impression: COPD exacerbation Additional Impression: Pneumonia Disposition: HOME / SELF CARE / HOMELESS Condition: STABLE Referrals: NO PCP (PCP) Patient Instructions: Smoking Cessation Scripts Prednisone (PREDNISONE) 50 Mg Tablet 1 TAB PO DAILY for steroid for 4 Days, #4 TAB Prov: CHINTAN SALAZAR MD 07/04/21 Albuterol Sulfate (PROAIR HFA INHALER) 8.5 Gm Hfa.aer.ad 2 PUFF IH PRN Q4-6HRS PRN for wheezing for 21 Days, #1 INHALER 1 Refill Prov: CHINTAN SALAZAR MD 07/04/21 Levofloxacin (LEVOFLOXACIN) 750 Mg Tablet 1 TAB PO DAILY for antibiotic, #5 TAB Prov: CHINTAN SALAZAR MD 07/04/21 Problem Qualifiers CHINTAN SALAZAR MD July 04, 2021 19:19
[2021-07-04 19:52] LABS: BASO # 0.1 x10^3/uL (0.0-0.2); BASO % 1 % (0-3); EOS # 0.4 x10^3/uL (0.0-0.7); EOS % 7 % (0-3); HEMATOCRIT 39.5 % (39.0-53.0); HEMOGLOBIN 13.4 g/dL (13.0-17.5); LYMPH # 2.3 x10^3/uL (1.0-4.8); LYMPH % 41 % (24-48); MEAN CORPUSCULAR HEMOGLOBIN 34 pg (25-35); MEAN CORPUSCULAR HGB CONC 34 g/dL (31-37); MEAN CORPUSCULAR VOLUME 99 fL (79-100); MONO # 0.7 x10^3/uL (0.0-1.1); MONO % 13 % (0-9); NEUT # 2.1 x10^3/uL (1.8-7.7); NEUT % 38 % (31-73); PLATELET COUNT 241 x10^3/uL (140-400); RED BLOOD COUNT 4.01 x10^6/uL (4.30-5.70); RED CELL DISTRIBUTION WIDTH 13.6 % (11.5-14.5); WHITE BLOOD COUNT 5.7 x10^3/uL (4.0-11.0)
[2021-07-04 19:55] LABS: ISTAT BE VENOUS 3 mmol/L (0-3); ISTAT HCO3 VEN 29 mmol/L (24-28); ISTAT PCO2 VEN 59 mmHg (41-51); ISTAT PH VEN 7.31 (7.32-7.42); ISTAT PO2 VEN 70 mmHg (20-40); ISTAT SAT O2 VEN 92 %; ISTAT TCO2 VEN 31 mmol/L (21-32)
[2021-07-04 20:04] LABS: CALCIUM 9.4 mg/dL (8.5-10.1); CREATININE 0.7 mg/dL (0.7-1.3); GFR 115.4; POTASSIUM 4.2 mmol/L (3.5-5.1)
[2021-07-04 20:17] LABS: ALBUMIN 3.5 g/dL (3.4-5.0); ALBUMIN/GLOBULIN RATIO 1.1 (1.0-1.7); MAGNESIUM 1.9 mg/dL (1.8-2.4); TOTAL BILIRUBIN 0.1 mg/dL (0.2-1.0); TOTAL PROTEIN 6.6 g/dL (6.4-8.2)
--- NOTE | 2021-07-04 20:28 | RAD ---
EXAMINATION: XR CHEST 1V CLINICAL HISTORY: COPD. EXAM DATE/TIME: 07/04/2021 7:28 PM COMPARISON: 09/27/2020 FINDINGS: Lines, Tubes, and Devices: None. Cardiomediastinal Silhouette: Normal heart size. Aortic atherosclerotic calcification. Lungs and Pleura: Mild patchy opacities in the right mid to lower and left lower lung zones. Nonspeci fic interstitial prominence, similar to prior study and likely chronic. No evidence of pleural effusi on or pneumothorax. Bones and Soft Tissues: Degenerative changes in the thoracic spine. IMPRESSION: Nonspecific mild patchy opacities in the right mid and bilateral lower lung zones. Electronically signed by: Faustino Upton DO (07/04/2021 8:25 PM) [facility]OL[facility]
--- NOTE | 2021-07-04 20:32 | RAD ---
EXAMINATION: XR RT TIBIA+FIBULA CLINICAL HISTORY: Pain proximal fibula. TECHNIQUE: XR RT TIBIA+FIBULA COMPARISON: None FINDINGS/ IMPRESSION: Deformity of the proximal fibula on AP view but poorly visualized on lateral view due to bony overlap , suspicious for a remote healed fracture, correlate clinically. Poorly visualized acute fracture con sidered less likely but not entirely excluded, especially if there is history of acute trauma. There is otherwise no evidence of acute or chronic fracture. Joints at the knee and ankle incompletel y evaluated. No focal soft tissue swelling. Vascular calcifications. Electronically signed by: Faustino Upton DO (07/04/2021 8:29 PM) [facility]
[2021-07-04] MEDS ORDERED: predniSONE 20 MG TABLET PO ONE (20:45)
[2021-07-04] MEDS ORDERED: LEVO750T5 PO (21:28)
[2021-07-04] MEDS ORDERED: ALBU2.5V8 IH (21:28)
[2021-07-04] MEDS ORDERED: PRED50TA PO (21:28)
[2021-07-04 21:47] VITALS: BP 97/56
--- NOTE | 2021-07-05 05:53 | EKG ---
[facility] [address] [place] [address] Test Date: 2021-07-04 Test Time: 19:21:02 Pat Name: RAS WILLIS Department: Room: Gender: M [employer]er: [id number] : 1960 Requested By: CHINTAN SALAZAR Order Number: [id number] Reading MD: Kieran Marmolejo Measurements Intervals [place] Rate: 75 P: 90 ME: 164 QRS: 84 QRSD: 84 T: 71 QT: 370 QTc: 416 Interpretive Statements SINUS RHYTHM Electronically Signed On 07-07-2021 10:12:46 CDT by Kieran Marmolejo
== END 2021-07-04 22:05 | disposition home or self-care (01) ==
LOC: ER 18:57
DX: S81.831A Puncture wound without foreign body, right lower leg, initial encounter (principal); J18.9 Pneumonia, unspecified organism; J44.1 Chronic obstructive pulmonary disease with (acute) exacerbation; I11.0 Hypertensive heart disease with heart failure; I50.9 Heart failure, unspecified; J45.909 Unspecified asthma, uncomplicated; F17.200 Nicotine dependence, unspecified, uncomplicated; W57.XXXA Bitten or stung by nonvenomous insect and other nonvenomous arthropods, initial encounter; Y93.89 Activity, other specified; Y92.89 Other specified places as the place of occurrence of the external cause; Y99.8 Other external cause status
CPT/HCPCS: 36415; 71045; 73590; 80053; 82803; 83735; 84484; 85025; 93005; 96360; 99285; J7030; J7512